=== PATIENT | male | born 1965 | race Caucasian/White ===

== ENCOUNTER 2016-04-24 11:41 | Emergency (ER) | payer OTHER ==
[2016-04-24] MEDS ORDERED: OPTIRAY 350 100 ML VIAL HMH IV ONE (11:42)
[2016-04-24] MEDS ORDERED: ASPIRIN 81 MG CHEW TAB ONE (12:21)
[2016-04-24] MEDS ORDERED: ALU/MAG/SIM 30 ML UDC ONE (13:09)
[2016-04-24] MEDS ORDERED: LIDOCAINE 2% VISC 15 ML UDC ONE (13:09)
== END 2016-04-24 16:30 | disposition home or self-care (01) ==
LOC: ER 11:41
CPT/HCPCS: 36415 ×2; 71020 ×2; 71260 ×2; 80053 ×2; 82550 ×2; 83735 ×2; 84484 ×2; 85025 ×2; 85610 ×2; 85730 ×2; 93005 ×2; 99285; Q9967